=== PATIENT | male | born 1965 | race Hispanic/Latino ===

== ENCOUNTER 2021-09-21 04:33 | Inpatient (IN) | payer SELFPAY ==
[~2021-09-21] VITALS: Ht 165.1 cm; Wt 79.4 kg
[2021-09-21 06:39] LABS: BASOPHILS # (AUTO) 0.1 (0.0-0.1); BASOPHILS % 0.5 % (0.0-1.0); EOSINOPHILS # (AUTO) 0.1 (0.0-0.4); EOSINOPHILS % 0.9 % (0.0-6.0); HEMATOCRIT 46.2 % (38.2-49.6); HEMOGLOBIN 15.8 g/dL (14.0-18.0); LYMPHOCYTES # (AUTO) 1.8 (1.0-3.2); LYMPHOCYTES % 12.1 % (18.0-39.1); MEAN CORPUSCULAR HEMOGLOBIN 31.4 pg (28-32); MEAN CORPUSCULAR HGB CONC 34.2 g/dL (31-35); MEAN CORPUSCULAR VOLUME 91.8 fL (81-99); MONOCYTES # (AUTO) 1.2 (0.2-0.8); MONOCYTES % 8.2 % (4.4-11.3); NEUTROPHILS # (AUTO) 11.3 (2.1-6.9); NEUTROPHILS % 77.7 % (38.7-80.0); PLATELET COUNT 202 x10e3/uL (140-360); RED BLOOD COUNT 5.03 x10e6/uL (4.3-5.7); RED CELL DISTRIBUTION WIDTH 12.7 % (11.7-14.4)
[2021-09-21 06:58] LABS: ALBUMIN 4.2 g/dL (3.5-5.0); ALBUMIN/GLOBULIN RATIO 1.2 (0.8-2.0); ANION GAP 12.5 mmol/L (8-16); CALCIUM 9.1 mg/dL (8.4-10.2); CREATININE, SERUM 0.72 mg/dL (0.72-1.25); POTASSIUM 4.5 mmol/L (3.5-5.1)
[2021-09-21] MEDS ORDERED: ONDANSETRON HCL INJ 2MG/ML 2ML 2 MG/ML VIAL IV STA (07:34)
[2021-09-21] MEDS ORDERED: SODIUM CHLORIDE 0.9% 1000ML 1,000 ML IV SCH ×2 (07:45→08:30)
[2021-09-21] MEDS ORDERED: Morphine 4mg Syringe 4 MG/ML INJ IV ONE (07:45)
[2021-09-21] MEDS ORDERED: PIPERACILLIN/TAZOBACTAM 3.375 GM in SODIUM CHLORIDE 0.9% 50ML 50 ML IV ONE (07:45)
[2021-09-21] MEDS ORDERED: Vancomycin IV 1 GM in SODIUM CHLORIDE 0.9% 250ML 250 ML IV ONE (08:15)
[2021-09-21 08:29] LABS: INR 0.92
[2021-09-21 08:30] LABS: PARTIAL THROMBOPLASTIN TIME 29.8 seconds (23.8-35.5)
[2021-09-21] MEDS ORDERED: Morphine 4mg Syringe 4 MG/ML INJ IV PRN (08:30)
[2021-09-21] MEDS ORDERED: ONDANSETRON HCL INJ 2MG/ML 2ML 2 MG/ML VIAL IV PRN ×2 (08:30→12:45)
[2021-09-21 10:22] VITALS: BP 145/86
[2021-09-21 10:45] VITALS: BP 145/86
[2021-09-21 11:05] VITALS: BP 143/97
[2021-09-21] MEDS ORDERED: LISINOPRIL10 MG PO (11:06)
[2021-09-21] MEDS ORDERED: DEXTROSE 50% SYRINGE 50 ML IV PRN (12:45)
[2021-09-21] MEDS ORDERED: BENZONATATE 100 MG CAP PO PRN (12:45)
[2021-09-21] MEDS ORDERED: POTASSIUM CHLORIDE 20 MEQ TAB CR PO PRN (12:45)
[2021-09-21] MEDS ORDERED: ACETAMINOPHEN 325 MG TAB PO PRN (12:45)
[2021-09-21] MEDS ORDERED: MELATONIN 5 MG TABLET PO PRN (12:45)
[2021-09-21] MEDS ORDERED: SIMETHICONE 80 MG CHEW PO PRN (12:45)
[2021-09-21] MEDS ORDERED: LIDOCAINE 4% PATCH TP PRN (12:45)
[2021-09-21] MEDS ORDERED: DIPHENHYDRAMINE HCL 25 MG CAP PO PRN (12:45)
[2021-09-21] MEDS ORDERED: DOCUSATE SODIUM 100 MG CAP PO PRN (12:45)
[2021-09-21] MEDS ORDERED: HYDRALAZINE HCL 20 MG/ML VIAL IV PRN (12:45)
[2021-09-21] MEDS ORDERED: AMPICILLIN SOD/SULBACTAM 3GM 100 ML IV SCH (12:45)
[2021-09-21] MEDS ORDERED: SODIUM CHLORIDE 0.9% 50ML 50 ML ONE (12:57)
[2021-09-21] MEDS ORDERED: IOPAMIDOL 370 MG/ML 200 ML INFUS..BTL INJ ONE (12:57)
[2021-09-21] MEDS: KETOROLAC TROMETHAMINE 30 MG/ML VIAL IV SCH ×3 (14:00→21:31)
[2021-09-21] MEDS ORDERED: PIPERACILLIN/TAZOBACTAM 3.375 GM in SODIUM CHLORIDE 0.9% 50ML 50 ML IV SCH (14:00)
[2021-09-21 16:35] VITALS: BP 133/89
[2021-09-21] MEDS: AMPICILLIN SOD/SULBACTAM 3GM 100 ML IV SCH ×2 (17:03→20:14)
[2021-09-21] MEDS: ENOXAPARIN SOD INJ 40 MG/0.4 ML SYR SC SCH (19:11)
[2021-09-21] MEDS ORDERED: Vancomycin IV 1 GM in SODIUM CHLORIDE 0.9% 250ML 250 ML IV SCH (20:00)
[2021-09-21 21:00] VITALS: BP 135/85
[2021-09-21] MEDS: Vancomycin IV 1 GM in SODIUM CHLORIDE 0.9% 250ML 250 ML IV SCH (21:30)
[2021-09-21 23:49] VITALS: BP 120/81
[2021-09-22] VITALS (7 sets, daily range): BP systolic 114–149; BP diastolic 81–95
[2021-09-22] MEDS: AMPICILLIN SOD/SULBACTAM 3GM 100 ML IV SCH ×4 (01:37→20:19)
[2021-09-22 08:09] LABS: BASOPHILS # (AUTO) 0.1 (0.0-0.1); BASOPHILS % 0.4 % (0.0-1.0); EOSINOPHILS # (AUTO) 0.1 (0.0-0.4); EOSINOPHILS % 0.7 % (0.0-6.0); HEMATOCRIT 45.4 % (38.2-49.6); LYMPHOCYTES # (AUTO) 2.1 (1.0-3.2); LYMPHOCYTES % 15.3 % (18.0-39.1); MEAN CORPUSCULAR HEMOGLOBIN 31.3 pg (28-32); MEAN CORPUSCULAR VOLUME 94.6 fL (81-99); MONOCYTES # (AUTO) 1.3 (0.2-0.8); NEUTROPHILS # (AUTO) 10.4 (2.1-6.9); NEUTROPHILS % 74.2 % (38.7-80.0); PLATELET COUNT 194 x10e3/uL (140-360); RED CELL DISTRIBUTION WIDTH 12.6 % (11.7-14.4)
[2021-09-22 08:24] LABS: CALCIUM 8.9 mg/dL (8.4-10.2); CREATININE, SERUM 0.83 mg/dL (0.72-1.25)
[2021-09-22 08:51] LABS: MAGNESIUM 2.1 MG/DL (1.3-2.1); PHOSPHORUS 3.6 MG/DL (2.3-4.7)
[2021-09-22 09:20] LABS: THYROID STIMULATING HORMONE 0.474 uIU/mL (0.350-4.940)
[2021-09-22] MEDS: HYDROCODONE/APAP 5MG-325MG TAB PO PRN (09:25)
[2021-09-22] MEDS: PANTOPRAZOLE SOD 40 MG TABEC PO SCH (09:32)
[2021-09-22] MEDS: Vancomycin IV 1 GM in SODIUM CHLORIDE 0.9% 250ML 250 ML IV SCH ×2 (10:15→21:28)
[2021-09-22] MEDS: LISINOPRIL 20 MG TAB PO SCH (13:55)
[2021-09-22] MEDS: KETOROLAC TROMETHAMINE 30 MG/ML VIAL IV SCH ×2 (13:55→21:28)
[2021-09-22] MEDS: ENOXAPARIN SOD INJ 40 MG/0.4 ML SYR SC SCH (17:11)
[2021-09-23] VITALS (10 sets, daily range): BP systolic 121–166; BP diastolic 81–105
[2021-09-23] MEDS: AMPICILLIN SOD/SULBACTAM 3GM 100 ML IV SCH ×4 (01:16→20:00)
[2021-09-23] MEDS: KETOROLAC TROMETHAMINE 30 MG/ML VIAL IV SCH (05:30)
[2021-09-23] MEDS: PANTOPRAZOLE SOD 40 MG TABEC PO SCH (07:30)
[2021-09-23] MEDS: LISINOPRIL 20 MG TAB PO SCH (08:58)
[2021-09-23] MEDS: Vancomycin IV 1 GM in SODIUM CHLORIDE 0.9% 250ML 250 ML IV SCH (08:58)
[2021-09-23] MEDS: HYDROCODONE/APAP 5MG-325MG TAB PO PRN ×2 (10:25→18:00)
[2021-09-23] MEDS ORDERED: ONDANSETRON HCL 4 MG ORAL DISINTEGRATING TAB PO PRN (17:45)
[2021-09-23] MEDS: ENOXAPARIN SOD INJ 40 MG/0.4 ML SYR SC SCH (18:20)
[2021-09-23] MEDS: Vancomycin IV 1.25 GM in SODIUM CHLORIDE 0.9% 250ML 250 ML IV SCH (21:00)
[2021-09-23] MEDS ORDERED: SODIUM CHLORIDE 0.9% 250ML 250 ML ONE (21:20)
[2021-09-24] VITALS (7 sets, daily range): BP systolic 115–159; BP diastolic 78–94
[2021-09-24] MEDS: HYDROCODONE/APAP 5MG-325MG TAB PO PRN ×4 (00:01→20:15)
[2021-09-24] MEDS: AMPICILLIN SOD/SULBACTAM 3GM 100 ML IV SCH ×2 (02:00→08:00)
[2021-09-24 05:39] LABS: BASOPHILS # (AUTO) 0.1 (0.0-0.1); BASOPHILS % 0.6 % (0.0-1.0); EOSINOPHILS # (AUTO) 0.3 (0.0-0.4); EOSINOPHILS % 2.3 % (0.0-6.0); HEMATOCRIT 41.4 % (38.2-49.6); HEMOGLOBIN 14.1 g/dL (14.0-18.0); LYMPHOCYTES # (AUTO) 1.7 (1.0-3.2); LYMPHOCYTES % 15.4 % (18.0-39.1); MEAN CORPUSCULAR HEMOGLOBIN 31.3 pg (28-32); MEAN CORPUSCULAR HGB CONC 34.1 g/dL (31-35); MEAN CORPUSCULAR VOLUME 91.8 fL (81-99); MONOCYTES % 9.3 % (4.4-11.3); NEUTROPHILS # (AUTO) 7.8 (2.1-6.9); NEUTROPHILS % 71.8 % (38.7-80.0); PLATELET COUNT 206 x10e3/uL (140-360); RED BLOOD COUNT 4.51 x10e6/uL (4.3-5.7); RED CELL DISTRIBUTION WIDTH 12.3 % (11.7-14.4)
[2021-09-24 05:58] LABS: ANION GAP 12.9 mmol/L (8-16); CALCIUM 8.7 mg/dL (8.4-10.2); CREATININE, SERUM 0.79 mg/dL (0.72-1.25); POTASSIUM 3.9 mmol/L (3.5-5.1)
[2021-09-24] MEDS: PANTOPRAZOLE SOD 40 MG TABEC PO SCH (07:30)
[2021-09-24] MEDS: LISINOPRIL 20 MG TAB PO SCH (09:00)
[2021-09-24] MEDS: Vancomycin IV 1.25 GM in SODIUM CHLORIDE 0.9% 250ML 250 ML IV SCH ×2 (09:00→21:30)
[2021-09-24] MEDS ORDERED: LIDOCAINE HCL 1% LOCAL INJ 20 ML VIAL INJ NR (12:30)
[2021-09-24] MEDS: MEROPENEM 500 MG in SODIUM CHLORIDE 0.9% 50ML 50 ML IV SCH ×2 (14:00→23:30)
[2021-09-24] MEDS: ENOXAPARIN SOD INJ 40 MG/0.4 ML SYR SC SCH (18:28)
[2021-09-25 00:07] VITALS: BP 124/87
[2021-09-25 04:23] VITALS: BP 116/83
[2021-09-25 05:34] LABS: BASOPHILS # (AUTO) 0.1 (0.0-0.1); EOSINOPHILS # (AUTO) 0.3 (0.0-0.4); EOSINOPHILS % 4.4 % (0.0-6.0); HEMATOCRIT 43.8 % (38.2-49.6); HEMOGLOBIN 14.7 g/dL (14.0-18.0); LYMPHOCYTES # (AUTO) 2.2 (1.0-3.2); LYMPHOCYTES % 30.5 % (18.0-39.1); MEAN CORPUSCULAR HEMOGLOBIN 30.8 pg (28-32); MEAN CORPUSCULAR HGB CONC 33.6 g/dL (31-35); MEAN CORPUSCULAR VOLUME 91.6 fL (81-99); MONOCYTES # (AUTO) 0.7 (0.2-0.8); MONOCYTES % 10.1 % (4.4-11.3); NEUTROPHILS # (AUTO) 3.8 (2.1-6.9); NEUTROPHILS % 53.6 % (38.7-80.0); PLATELET COUNT 233 x10e3/uL (140-360); RED BLOOD COUNT 4.78 x10e6/uL (4.3-5.7); RED CELL DISTRIBUTION WIDTH 12.6 % (11.7-14.4)
[2021-09-25] MEDS: MEROPENEM 500 MG in SODIUM CHLORIDE 0.9% 50ML 50 ML IV SCH ×2 (05:52→14:23)
[2021-09-25 06:10] LABS: ANION GAP 16.5 mmol/L (8-16); CALCIUM 8.9 mg/dL (8.4-10.2); CREATININE, SERUM 0.79 mg/dL (0.72-1.25); POTASSIUM 4.5 mmol/L (3.5-5.1)
[2021-09-25 07:44] VITALS: BP 144/95
[2021-09-25 08:30] VITALS: BP 144/95
[2021-09-25] MEDS: PANTOPRAZOLE SOD 40 MG TABEC PO SCH (09:00)
[2021-09-25] MEDS: LISINOPRIL 20 MG TAB PO SCH (09:33)
[2021-09-25] MEDS: Vancomycin IV 1.25 GM in SODIUM CHLORIDE 0.9% 250ML 250 ML IV SCH (09:38)
[2021-09-25 11:33] VITALS: BP 108/88
[2021-09-25] MEDS: HYDROCODONE/APAP 5MG-325MG TAB PO PRN (14:23)
[2021-09-25 16:11] VITALS: BP 130/88
[2021-09-25] MEDS: ENOXAPARIN SOD INJ 40 MG/0.4 ML SYR SC SCH (17:09)
[2021-09-25] MEDS ORDERED: CIPRO500 MG PO (18:12)
== END 2021-09-25 18:57 | disposition home or self-care (01) | DRG 603 ==
LOC: ER 07:08 → ERHOLD 08:30 → MED/SURG2 10:12
PROVIDERS: ADMIT Internal Medicine; ATTEND Internal Medicine
PROC: 0J913ZZ Drainage of Face Subcutaneous Tissue and Fascia, Percutaneous Approach (ICD-10-PCS; principal; 2021-09-23)
DX: L03.211 Cellulitis of face (principal); Z16.12 Extended spectrum beta lactamase (ESBL) resistance; L02.01 Cutaneous abscess of face; K11.20 Sialoadenitis, unspecified; B96.4 Proteus (mirabilis) (morganii) as the cause of diseases classified elsewhere; B96.89 Other specified bacterial agents as the cause of diseases classified elsewhere; I10 Essential (primary) hypertension; Z20.822 Contact with and (suspected) exposure to COVID-19
CPT/HCPCS: 36415; 70487; 80048; 80053; 80202; 82948; 83036; 83605; 83735; 84100; 84443; 85025; 85610; 85730; 87040; 87071; 87186; 87205; 94799; 99284; J0295; J0360; J1650; J1885; J2001; J2185; J2270; J2405; J2543; J3370; J7030; J7050; Q9967; U0002